=== PATIENT | female | born 1935 | race African-American/Black ===

== ENCOUNTER 2023-12-08 14:31 | Emergency (ER) | payer OTHER ==
[~2023-12-08] VITALS: Ht 172.7 cm; Wt 68.0 kg
[2023-12-08 14:34] VITALS: O2SAT 98
[2023-12-08] MEDS: SODIUM CHLORIDE 0.9% 1000ML BAG (SEPSIS BOLUS) IV ONE (15:20)
[2023-12-08 15:23] LABS: BASOPHILS % 0.8 % (0.0-2.0); EOSINOPHILS % 2.6 % (0.0-5.0); HEMATOCRIT. 37.4 % (36.0-48.0); HEMOGLOBIN. 12.8 g/dL (12.0-16.0); LYMPHOCYTES % 17.1 % (20.0-50.0); MEAN CORPUSCULAR HEMOGLOBIN 32.5 pg (28.0-32.0); MEAN CORPUSCULAR HGB CONC 34.1 g/dL (31.0-37.0); MEAN CORPUSCULAR VOLUME 95.1 fL (81.0-99.0); MEAN PLATELET VOLUME 7.5 fl (7.4-10.4); MONOCYTES % 10.3 % (2.0-8.0); NEUTROPHILS % 69.2 % (40.0-76.0); PLATELET 346 x1000/uL (130-400); RED BLOOD CELL COUNT 3.93 mill/uL (4.2-5.4); RED CELL DISTRIBUTION WIDTH 14.6 % (11.6-14.6)
[2023-12-08] MEDS: LEVOFLOXACIN 750MG PREMIX 150 ML IV ONE (15:32)
[2023-12-08 15:34] LABS: CARBON DIOXIDE 26 mEq/L (21-32); CHLORIDE 109 mEq/L (98-107); POTASSIUM 4.6 mEq/L (3.5-5.1); PROTHROMBIN TIME 10.7 sec (9.6-11.0); SODIUM 140 mEq/L (136-145)
[2023-12-08 15:35] LABS: CALCIUM 10.8 mg/dL (8.7-10.4)
[2023-12-08 15:40] LABS: CREATININE 0.7 mg/dL (0.6-1.0); GLUCOSE 104 mg/dL (70-105); UREA NITROGEN BLOOD 16 mg/dL (9-23)
[2023-12-08 15:41] LABS: ALANINE AMINOTRANSFERASE 22 IU/L (10-49); ASPARTATE AMINOTRANSFERASE 25 IU/L (<34)
[2023-12-08 15:42] LABS: ALBUMIN 4.3 g/dL (3.2-4.8); BILIRUBIN DIRECT 0.1 mg/dL (<=3.0); BILIRUBIN TOTAL 0.4 mg/dL (0.1-1.0); PROTEIN TOTAL 7.1 g/dL (6.0-8.3); TROPONIN I HIGH SENSITIVITY < 4 ng/L (3.0-34)
[2023-12-08 17:12] LABS: CLARITY URINE CLOUDY (CLEAR); COLOR URINE YELLOW (YELLOW); GLUCOSE URINE NEGATIVE (NEGATIVE); KETONES URINE NEGATIVE (NEGATIVE); LEUKOCYTE ESTERASE URINE 3+ (NEGATIVE); NITRITE URINE NEGATIVE (NEGATIVE); OCCULT BLOOD URINE NEGATIVE (NEGATIVE); PH URINE 5.5 (4.5-8.0); PROTEIN URINE NEGATIVE (NEGATIVE); SPECIFIC GRAVITY URINE 1.018 (1.005-1.030); UROBILINOGEN URINE 0.2 E.U./dL (0.2-1.0)
[2023-12-08] MEDS ORDERED: AMLODIPINE 10MG TABLET PO ONE (17:15)
[2023-12-08 17:30] LABS: BACTERIA URINE 2+; RBC URINE NONE SEEN /hpf (0-2); SQUAMOUS EPITHELIAL CELL URINE NONE SEEN /lpf (RARE/1+); WBC URINE 50-100 /hpf (0-2); YEAST URINE 4+
[2023-12-08] MEDS ORDERED: AMLODIPINE 5MG TABLET PO NR (17:30)
[2023-12-08] MEDS ORDERED: FLUCONAZOLE 50MG TABLET PO ONE (18:00)
[2023-12-08] MEDS: AMLODIPINE 5MG TABLET PO NR (19:23)
[2023-12-08 19:26] VITALS: BP 136/68; PULSE 70; RESP 15; TEMP 97.9
[2023-12-08] MEDS: MAGNESIUM OXIDE 400MG TABLET PO STA (19:33)
[2023-12-08] MEDS: FLUCONAZOLE 150MG TABLET PO NR (19:34)
== END 2023-12-08 19:30 | disposition short-term general hospital (02) ==
LOC: ER 14:31 → EDBEDREQ 17:02 → ER 19:30 → CANBEDREQ 12-10 07:23
DX: N39.0 Urinary tract infection, site not specified (principal); E83.42 Hypomagnesemia; I10 Essential (primary) hypertension; Z20.822 Contact with and (suspected) exposure to COVID-19; Z88.0 Allergy status to penicillin; Z86.73 Personal history of transient ischemic attack (TIA), and cerebral infarction without residual deficits
CPT/HCPCS: 99285; 96374; 71045; 87426; 80076; 80048; 81003; 87106; 83880; 83605; 83735; 85025; 85610; 87040; 87086; 84484; 36415; 93005; J1956; J7030; 84145

== ENCOUNTER 2024-03-14 10:37 | Emergency (ER) | payer OTHER ==
[~2024-03-14] VITALS: Ht 157.5 cm; Wt 64.0 kg
[2024-03-14 10:41] VITALS: TEMP 98.1; O2SAT 97
[2024-03-14] MEDS: ACETAMINOPHEN 325MG TABLET PO STA (14:28)
[2024-03-14 15:57] LABS: BASOPHILS % 0.4 % (0.0-2.0); EOSINOPHILS % 1.3 % (0.0-5.0); HEMATOCRIT. 39.6 % (36.0-48.0); HEMOGLOBIN. 13.4 g/dL (12.0-16.0); LYMPHOCYTES % 17.4 % (20.0-50.0); MEAN CORPUSCULAR HEMOGLOBIN 31.7 pg (28.0-32.0); MEAN CORPUSCULAR HGB CONC 33.8 g/dL (31.0-37.0); MEAN CORPUSCULAR VOLUME 93.7 fL (81.0-99.0); MEAN PLATELET VOLUME 8.2 fl (7.4-10.4); MONOCYTES % 8.2 % (2.0-8.0); NEUTROPHILS % 72.7 % (40.0-76.0); PLATELET 229 x1000/uL (130-400); RED BLOOD CELL COUNT 4.23 mill/uL (4.2-5.4)
[2024-03-14 16:03] LABS: CHLORIDE 103 mEq/L (98-107); POTASSIUM 4.1 mEq/L (3.5-5.1); SODIUM 136 mEq/L (136-145)
[2024-03-14 16:04] LABS: CALCIUM 10.8 mg/dL (8.7-10.4); CARBON DIOXIDE 27 mEq/L (21-32)
[2024-03-14 16:07] LABS: INR 1.2; PROTHROMBIN TIME 12.9 sec (9.6-11.0)
[2024-03-14 16:09] LABS: CREATININE 0.7 mg/dL (0.6-1.0); GLUCOSE 88 mg/dL (70-105); UREA NITROGEN BLOOD 14 mg/dL (9-23)
[2024-03-14 16:31] LABS: TROPONIN I HIGH SENSITIVITY < 4 ng/L (3.0-34)
[2024-03-14] MEDS ORDERED: ACET-2708 MT (18:08)
[2024-03-14 22:59] VITALS: BP 131/62; PULSE 82; RESP 18; O2SAT 100
== END 2024-03-14 22:58 | disposition home or self-care (01) ==
LOC: ER 10:37
DX: M25.512 Pain in left shoulder (principal); E11.9 Type 2 diabetes mellitus without complications; I10 Essential (primary) hypertension; F03.90 Unspecified dementia, unspecified severity, without behavioral disturbance, psychotic disturbance, mood disturbance, and anxiety; Z88.0 Allergy status to penicillin
CPT/HCPCS: 36415; 71045; 73030; 80048; 84484; 85025; 93005; 99285

== ENCOUNTER 2024-03-23 11:55 | Emergency (ER) | payer OTHER ==
[~2024-03-23] VITALS: Ht 162.6 cm; Wt 91.0 kg
[~2024-03-23 11:55] MED LIST: ACET-2708 MT
[2024-03-23 11:57] VITALS: O2SAT 98
[2024-03-23] MEDS ORDERED: CEFEPIME 2GM IN DEXT 5% 100ML IV ONE (12:15)
[2024-03-23] MEDS ORDERED: LACTATED RINGERS 1,000 ML IV SCH (12:15)
[2024-03-23] MEDS: SODIUM CHLORIDE 0.9% 1000ML BAG (SEPSIS BOLUS) IV ONE (12:27)
[2024-03-23] MEDS: VANCOMYCIN 1.5GM/250ML 250 ML IV STA (12:40)
[2024-03-23 12:48] LABS: BASOPHILS % 0.4 % (0.0-2.0); EOSINOPHILS % 0.4 % (0.0-5.0); HEMATOCRIT. 39.8 % (36.0-48.0); HEMOGLOBIN. 12.8 g/dL (12.0-16.0); MEAN CORPUSCULAR HEMOGLOBIN 31.1 pg (28.0-32.0); MEAN PLATELET VOLUME 7.3 fl (7.4-10.4); MONOCYTES % 5.8 % (2.0-8.0); NEUTROPHILS % 81.4 % (40.0-76.0); PLATELET 264 x1000/uL (130-400); RED BLOOD CELL COUNT 4.11 mill/uL (4.2-5.4); WHITE BLOOD COUNT 8.4 x1000/uL (4.5-11.0)
[2024-03-23 12:57] LABS: CHLORIDE 108 mEq/L (98-107); POTASSIUM 4.3 mEq/L (3.5-5.1); SODIUM 136 mEq/L (136-145)
[2024-03-23 12:59] LABS: CALCIUM 10.7 mg/dL (8.7-10.4); CARBON DIOXIDE 23 mEq/L (21-32)
[2024-03-23 13:04] LABS: CREATININE 0.7 mg/dL (0.6-1.0); GLUCOSE 105 mg/dL (70-105); UREA NITROGEN BLOOD 11 mg/dL (9-23)
[2024-03-23 13:05] LABS: ALANINE AMINOTRANSFERASE 24 IU/L (10-49); ASPARTATE AMINOTRANSFERASE 27 IU/L (<34)
[2024-03-23 13:06] LABS: ALBUMIN 3.8 g/dL (3.2-4.8); BILIRUBIN DIRECT 0.2 mg/dL (<=3.0); BILIRUBIN TOTAL 0.5 mg/dL (0.1-1.0); PROTEIN TOTAL 6.9 g/dL (6.0-8.3)
[2024-03-23] MEDS: ACETAMINOPHEN 325MG TABLET PO ONE (13:19)
[2024-03-23] MEDS: CEFEPIME 2GM/100ML 100 ML IV NR (13:43)
[2024-03-23 14:07] LABS: INR 1.1; PROTHROMBIN TIME 12.3 sec (9.6-11.0)
[2024-03-23 14:15] LABS: CLARITY URINE TURBID (CLEAR); COLOR URINE YELLOW (YELLOW); GLUCOSE URINE NEGATIVE (NEGATIVE); KETONES URINE NEGATIVE (NEGATIVE); LEUKOCYTE ESTERASE URINE 3+ (NEGATIVE); NITRITE URINE NEGATIVE (NEGATIVE); OCCULT BLOOD URINE 2+ (NEGATIVE); PROTEIN URINE TRACE (NEGATIVE); SPECIFIC GRAVITY URINE 1.016 (1.005-1.030); UROBILINOGEN URINE 0.2 E.U./dL (0.2-1.0)
[2024-03-23 14:33] LABS: SQUAMOUS EPITHELIAL CELL URINE FEW /lpf (RARE/1+)
[2024-03-23 14:34] LABS: RBC URINE 15-25 /hpf (0-2); WBC URINE TNTC /hpf (0-2)
[2024-03-23 14:35] LABS: BACTERIA URINE 4+; YEAST URINE 2+
[2024-03-23 19:15] VITALS: BP 116/64; PULSE 89; RESP 20; TEMP 36.66960; O2SAT 99
== END 2024-03-23 19:17 | disposition short-term general hospital (02) ==
LOC: ER 11:55 → CANBEDREQ 15:23 → ER 19:17
DX: A41.9 Sepsis, unspecified organism (principal); R65.20 Severe sepsis without septic shock; N30.00 Acute cystitis without hematuria; G93.40 Encephalopathy, unspecified; E83.52 Hypercalcemia; N28.9 Disorder of kidney and ureter, unspecified; Z20.822 Contact with and (suspected) exposure to COVID-19; Z88.0 Allergy status to penicillin
CPT/HCPCS: 99291; 96365; 70450; 96366; 87426; 80076; 80048; 81003; 83605; 85025; 85610; 87040; 87086; 87186; 87077; 36415; 84145; 71045; 93005; 96368; J3370; J0692; J7030